=== PATIENT | female | born 1975 | race Caucasian/White ===

== ENCOUNTER 2018-01-11 19:07 | Emergency (ER) | payer SELFPAY ==
--- NOTE | 2018-01-11 19:52 | EDM.PDOC ---
ED HPI GENERAL MEDICAL PROBLEM - General Chief Complaint: Chest Pain Stated Complaint: CHEST PAIN Time Seen by Provider: 01/11/18 19:32 Source of Information: Reports: Patient History Limitations: Reports: Other (Anxious, tearful, somewhat angry) - History of Present Illness INITIAL COMMENTS - FREE TEXT/NARRATIVE: The patient states that she has felt "funny" on off for the past 2 days. She reports having chest tightness, shortness of breath, headache, and dizziness. She denies tingling or numbness around her mouth or on her face, no tightness in her neck or throat, no abdominal pain or nausea, and no sensation of walking on rubber legs. She states that she has frequent alternating constipation and diarrhea. No recent dysuria. No recent fever. Here in the ED, it is noted that her SpO2 is 100% on room air. The patient reports having a lot of stress at home. The patient has not tried to treat any of her symptoms with any over-the- counter or home remedies. No medical evaluation for these symptoms prior to today. She states that the symptoms that she has been experiencing are similar, although not quite the same, as when she experienced transient atrial fibrillation in 2010. The patient does not have a PCP. Her last general physical exam was around 2007. Chest Pain Score (Numeric/FACES): 7 - Related Data Allergies Allergy/AdvReac Type Severity Reaction Status Date / Time feathers Allergy Other Verified 01/11/18 19:20 dust Allergy Other Uncoded 01/11/18 19:20 Home Meds: Home Meds . [No Known Home Meds] 01/11/18 [History] Past Medical History Cardiovascular History: Reports: Afib (transient, 2010) Respiratory History: Reports: Pneumothorax (left, traumatic, as a child) Psychiatric History: Reports: Depression (untreated), PTSD (untreated), Suicidal Ideation - Past Surgical History Respiratory Surgical History: Reports: Other (See Below) (Left chest tube for PTx) Female Surgical History: Reports: Tubal Ligation Social & Family History - Family History Family Medical History: Noncontributory - Tobacco Use Smoking Status *Q: Current Every Day Smoker Years of Tobacco use: 30 Packs/Tins Daily: 1 - Caffeine Use Caffeine Use: Reports: Coffee, Soda Other Caffeine Use: 8 cups coffee per day. 4-5 diet cokes per day - Alcohol Use Alcohol Use History: Yes Alcohol Use Frequency: Rarely - Recreational Drug Use Recreational Drug Use: No - Living Situation & Occupation Living situation: Reports: , with Spouse, with Family (Son) Occupation: Employed (Supervisor [employer]) ED ROS GENERAL - Review of Systems Review Of Systems: ROS reveals no pertinent complaints other than HPI. ED EXAM, GENERAL - Physical Exam Exam: See Below Exam Limited By: No Limitations General Appearance: Alert, WD/WN, Anxious Eye Exam: Bilateral Eye: Normal Inspection Ears: Normal External Exam, Hearing Grossly Normal Nose: Normal Inspection, No Blood Throat/Mouth: Normal Inspection, Normal Lips, Normal Voice, No Airway Compromise Head: Atraumatic, Normocephalic Neck: Normal Inspection, Full Range of Motion Respiratory/Chest: No Respiratory Distress, Lungs Clear, Normal Breath Sounds, No Accessory Muscle Use Cardiovascular: Normal Peripheral Pulses, Regular Rate, Rhythm, No Edema, No Gallop, No JVD, No Murmur, No Rub Peripheral Pulses: 4+: Radial (L), Radial (R) GI/Abdominal: Normal Bowel Sounds, Soft, Non-Tender, No Organomegaly, No Distention, No Abnormal Bruit, No Mass (Female) Exam: Deferred Rectal (Female) Exam: Deferred Back Exam: Normal Inspection, Full Range of Motion, NT Extremities: Normal Inspection, Normal Range of Motion, No Pedal Edema, Normal Capillary Refill Neurological: Alert, Oriented, Normal Cognition, No Motor/Sensory Deficits Psychiatric: Anxious, Tearful Skin Exam: Warm, Dry, Intact, Normal Color, No Rash EKG INTERPRETATION EKG Date: 01/11/18 Time: 19:14 Rhythm: NSR Rate (Beats/Min): 65 [place]: Normal P-Wave: Present QRS: Normal ST-T: Normal QT: Normal Comparison: NA - No Prior EKG Course - Vital Signs Last Recorded V/S: Last Vital Signs Temp 36.3 C 01/11/18 19:13 Pulse 74 01/11/18 19:13 Resp 20 01/11/18 19:13 BP 118/81 01/11/18 19:13 Pulse Ox 100 01/11/18 19:13 Orthostatic Blood Pressure [ 126/78 Standing] Orthostatic Blood Pressure [ 123/84 Sitting] Orthostatic Blood Pressure [ 120/70 Supine] - Orders/Labs/Meds Orders: Active Orders 24 hr Category Date Time Status EKG Documentation Completion [RC] STAT Care 01/11/18 19:33 Active Orthostatic Vital Signs [RC] STAT Care 01/11/18 19:45 Active Chest 2V [CR] Stat Exams 01/11/18 19:45 Taken HCG QUALITATIVE,URINE [URCHEM] Stat Lab 01/11/18 20:39 Ordered UA W/MICROSCOPIC [URIN] Stat Lab 01/11/18 20:39 Ordered Labs: Laboratory Tests 01/11/18 01/11/18 01/11/18 Range/Units 20:12 20:12 20:12 WBC 15.76 H (3.98-10.04) K/mm3 RBC 4.60 (3.98-5.22) M/mm3 Hgb 13.8 (11.2-15.7) gm/L Hct 41.2 (34.1-44.9) % MCV 89.6 (79.4-94.8) fl MCH 30.0 (25.6-32.2) pg MCHC 33.5 (32.2-35.5) g/dl RDW Std Deviation 43.2 (36.4-46.3) fL Plt Count 288 (182-369) K/mm3 MPV 10.0 (9.4-12.3) fl Neutrophils % (Manual) 57 (40-60) % Band Neutrophils % 0 (0-10) % Lymphocytes % (Manual) 32 (20-40) % Atypical Lymphs % 0 % Monocytes % (Manual) 9 (2-10) % Eosinophils % (Manual) 2 (0.7-5.8) % Basophils % (Manual) 0 L (0.1-1.2) Platelet Estimate Adequate Plt Morphology Comment Normal RBC Morph Comment Normal D-Dimer, Quantitative 0.37 (0.19-0.50) mg/L Puncture Site ABG pH (7.35-7.45) ABG pCO2 (35.0-45.0) mmHg ABG pO2 (80.0-100.0) mmHg ABG HCO3 (22.0-26.0) meq/L ABG O2 Saturation (96.0-97.0) % ABG Base Excess (-2-2.0) Dinesh Test O2 Delivery Device FiO2 (21.00-100.00) % Sodium 142 (136-145) mEq/L Potassium 3.7 (3.5-5.1) mEq/L Chloride 105 (98-107) mEq/L Carbon Dioxide 22 (21-32) mEq/L Anion Gap 18.7 H (5-15) BUN 16 (7-18) mg/dL Creatinine 0.9 (0.55-1.02) mg/dL Est Cr Clr Drug Dosing 57.89 mL/min Estimated GFR (MDRD) > 60 (>60) mL/min BUN/Creatinine Ratio 17.8 (14-18) Glucose 117 H (74-106) mg/dL Calcium 9.6 (8.5-10.1) mg/dL Magnesium 1.7 L (1.8-2.4) mg/dl Total Bilirubin 0.4 (0.2-1.0) mg/dL AST 16 (15-37) U/L ALT 26 (14-59) U/L Alkaline Phosphatase 73 (46-116) U/L Troponin I < 0.017 (0.00-0.056) ng/mL Total Protein 7.8 (6.4-8.2) g/dl Albumin 4.0 (3.4-5.0) g/dl Globulin 3.8 gm/dL Albumin/Globulin Ratio 1.1 (1-2) TSH 3rd Generation 2.022 (0.358-3.74) uIU/mL Urine Color (Yellow) Urine Appearance (Clear) Urine pH (5.0-8.0) Ur Specific [place] (1.005-1.030) Urine Protein (Negative) Urine Glucose (UA) (Negative) Urine Ketones (Negative) Urine Occult Blood (Negative) Urine Nitrite (Negative) Urine Bilirubin (Negative) Urine Urobilinogen (0.2-1.0) Ur Leukocyte Esterase (Negative) Urine RBC (0-5) /hpf Urine WBC (0-5) /hpf Ur Epithelial Cells (0-5) /hpf Urine Bacteria (FEW) /hpf Urine Mucus (FEW) /hpf Urine HCG, Qual (NEGATIVE) 01/11/18 01/11/18 01/11/18 Range/Units 20:15 20:39 20:39 WBC (3.98-10.04) K/mm3 RBC (3.98-5.22) M/mm3 Hgb (11.2-15.7) gm/L Hct (34.1-44.9) % MCV (79.4-94.8) fl MCH (25.6-32.2) pg MCHC (32.2-35.5) g/dl RDW Std Deviation (36.4-46.3) fL Plt Count (182-369) K/mm3 MPV (9.4-12.3) fl Neutrophils % (Manual) (40-60) % Band Neutrophils % (0-10) % Lymphocytes % (Manual) (20-40) % Atypical Lymphs % % Monocytes % (Manual) (2-10) % Eosinophils % (Manual) (0.7-5.8) % Basophils % (Manual) (0.1-1.2) Platelet Estimate Plt Morphology Comment RBC Morph Comment D-Dimer, Quantitative (0.19-0.50) mg/L Puncture Site Lt radial ABG pH 7.53 H (7.35-7.45) ABG pCO2 22.0 L (35.0-45.0) mmHg ABG pO2 117.0 H (80.0-100.0) mmHg ABG HCO3 18.4 L (22.0-26.0) meq/L ABG O2 Saturation 99.2 H (96.0-97.0) % ABG Base Excess -2.3 L (-2-2.0) Dinesh Test Positive O2 Delivery Device Room air FiO2 21.00 (21.00-100.00) % Sodium (136-145) mEq/L Potassium (3.5-5.1) mEq/L Chloride (98-107) mEq/L Carbon Dioxide (21-32) mEq/L Anion Gap (5-15) BUN (7-18) mg/dL Creatinine (0.55-1.02) mg/dL Est Cr Clr Drug Dosing mL/min Estimated GFR (MDRD) (>60) mL/min BUN/Creatinine Ratio (14-18) Glucose (74-106) mg/dL Calcium (8.5-10.1) mg/dL Magnesium (1.8-2.4) mg/dl Total Bilirubin (0.2-1.0) mg/dL AST (15-37) U/L ALT (14-59) U/L Alkaline Phosphatase (46-116) U/L Troponin I (0.00-0.056) ng/mL Total Protein (6.4-8.2) g/dl Albumin (3.4-5.0) g/dl Globulin gm/dL Albumin/Globulin Ratio (1-2) TSH 3rd Generation (0.358-3.74) uIU/mL Urine Color Yellow (Yellow) Urine Appearance Clear (Clear) Urine pH 6.0 (5.0-8.0) Ur Specific [place] > or = 1.030 (1.005-1.030) Urine Protein Negative (Negative) Urine Glucose (UA) Negative (Negative) Urine Ketones Trace H (Negative) Urine Occult Blood Negative (Negative) Urine Nitrite Negative (Negative) Urine Bilirubin Negative (Negative) Urine Urobilinogen 0.2 (0.2-1.0) Ur Leukocyte Esterase Negative (Negative) Urine RBC 0-5 (0-5) /hpf Urine WBC Not seen (0-5) /hpf Ur Epithelial Cells 0-5 (0-5) /hpf Urine Bacteria Not seen (FEW) /hpf Urine Mucus Not seen (FEW) /hpf Urine HCG, Qual Negative (NEGATIVE) - Re-Assessments/Exams Free Text/Narrative Re-Assessment/Exam: 01/11/18 20:03 The patient is not orthostatic. 01/11/18 20:05 2-view chest radiograph appears to be grossly normal. Cardiac silhouette is within normal limits. No pulmonary vascular congestion. No pleural effusions. No focal infiltrate. No pneumothorax. Formal read per the Radiologist pending. 01/11/18 20:28 The ABG reveals severe [id number] respiratory alkalosis, with incomplete compensation. 01/11/18 22:39 Test results discussed with the patient. As above, patient appears to be suffering from hyperventilation syndrome. Many of these cases are not situational, and thought to be due to a chemical imbalance in the brain, however , in this patient's case, she has numerous situational stressors, and also reports that she has not slept well for many nights, and is exhausted. She drove herself to the ED tonight, therefore I cannot give her a benzodiazepine before driving home, however, for tonight's purposes, I recommended that she take 2 tablets of Benadryl once she gets home, to allow her to get a good nights rest tonight. I will write her a note for work, allowing her to return on 01/13/2018, and I would like her to follow-up with Dr. Amira Ferrera tomorrow, where they can discuss treatment options for anxiety. Departure - Departure Time of Disposition: 22:41 Disposition: Home, Self-Care 01 Condition: Good Clinical Impression: Hyperventilation syndrome - Discharge Information Referrals: PCP,None [Primary Care Provider] - Amira Ferrera MD [Physician] - Forms: ED Department Discharge, ED Return to Work/School Form Additional Instructions: You were seen in the emergency room for symptoms of chest tightness, shortness of breath, headache, dizziness, to have come and go over the past 2 days. Workup in the ER included blood work, an arterial blood gas, a urinalysis, a urine test, positional blood pressure checks, a chest x-ray, and an ECG. Your entire workup was unremarkable, with the exception that you were found to be significantly hyperventilating. Hyperventilation is usually due to anxiety, although can be due to a number of medical causes, such as hypocalcemia, hypoglycemia, hyperthyroidism, liver failure, severe anemia, sepsis, acute coronary event, pneumothorax, pneumonia, dysrhythmia, pulmonary embolus, congestive heart failure, or even . All of these have been ruled out in your case. By a process of elimination, your hyperventilation is due to anxiety. Sometimes anxiety is due to situational circumstances, sometimes it is due to a chemical imbalance in the brain. In your case, it sounds like yours is due to a number of situational circumstances. A note, excusing you from work tomorrow, has been provided. We recommend that you take 2 tablets of [id number] Benadryl tonight, to help you get some sleep. We recommend that you follow-up with Dr. Amira Ferrera in the clinic tomorrow, to discuss treatment options for anxiety. If any other problems, please do not hesitate to return to the ER. - My Orders Last 24 Hours: My Active Orders 01/11/18 19:33 EKG Documentation Completion [RC] STAT 01/11/18 19:45 Orthostatic Vital Signs [RC] STAT Chest 2V [CR] Stat 01/11/18 20:39 HCG QUALITATIVE,URINE [URCHEM] Stat UA W/MICROSCOPIC [URIN] Stat - Assessment/Plan Last 24 Hours: My Active Orders 01/11/18 19:33 EKG Documentation Completion [RC] STAT 01/11/18 19:45 Orthostatic Vital Signs [RC] STAT Chest 2V [CR] Stat 01/11/18 20:39 HCG QUALITATIVE,URINE [URCHEM] Stat UA W/MICROSCOPIC [URIN] Stat
--- NOTE | 2018-01-12 08:46 | CR ---
Chest: Two views of the chest were obtained. Comparison: No prior chest x-ray. Heart size and mediastinum are normal. Lungs are clear with no acute parenchymal densities. Bony structures appear within normal limits for the patient's age. Impression: 1. Nothing acute is seen on two-view chest x-ray. Diagnostic code #1
== END 2018-01-11 22:57 | disposition home or self-care (01) ==
LOC: JD.ED 19:07
DX: F45.8 Other somatoform disorders (principal); I48.91 Unspecified atrial fibrillation; F17.210 Nicotine dependence, cigarettes, uncomplicated
CPT/HCPCS: 36415; 36600; 71046; 71046-26; 80053; 81001; 81025; 82803; 83735; 84443; 84484; 85007; 85027; 85379; 93005; 93010; 99284-25; 99285-25